=== PATIENT | male | born 1970 | race Caucasian/White ===

== ENCOUNTER 2025-06-24 22:05 | Emergency (ER) | payer BC, OTHER ==
[~2025-06-24] VITALS: Ht 180.3 cm; Wt 125.6 kg
[2025-06-24 23:56] LABS: APPEARANCE,URINE TURBID (CLEAR); BLOOD, URINE 3+ Ery/uL (NEGATIVE); LEUKOCYTE ESTERASE ,URINE TRACE (NEGATIVE); NITRITE, URINE POSITIVE (NEGATIVE); UGLUCOSE NEGATIVE (NEGATIVE)
[2025-06-25 00:22] LABS: ADD URINE CULTURE YES
[2025-06-25 00:23] LABS: SQUAMOUS EPITHELIAL CELL,UR 0-2 /HPF (None Seen)
[2025-06-25 00:30] LABS: PLATELET COUNT (AUTO) 270 K/uL (150-450); RED BLOOD CELL COUNT(AUTO) 4.77 MIL/uL (4.5-6.0); RED CELL DISTRIBUTION WIDTH 13.7 % (11.5-15.0); WHITE BLOOD COUNT (AUTO) 9.6 K/uL (4.3-11.0)
[2025-06-25 00:34] LABS: CALCIUM, SERUM 9.2 mg/dL (8.5-10.1); CREATININE 1.2 mg/dL (0.6-1.3); SODIUM SERUM 143.0 mmol/L (136-145); UREA NITROGEN, BLOOD 16.0 mg/dL (7-18)
[2025-06-25] MEDS ORDERED: SULFAMETH/TRIMETH 800/160 MG 1 UDTAB TABLET ONE (00:55)
[2025-06-25] MEDS: SULFAMETH/TRIMETH 800/160 MG 1 UDTAB TABLET PO ONE (00:58)
[2025-06-25] MEDS: CEFUROXIME AXETIL 250 MG TABLET PO STA (01:15)
[2025-06-25] MEDS ORDERED: SULF1TAB48 PO (01:19)
[2025-06-25] MEDS ORDERED: TAMS-12 PO (01:21)
[2025-06-25 01:42] VITALS: BP 145/89; TEMP 98; O2SAT 99
== END 2025-06-25 01:43 | disposition home or self-care (01) ==
LOC: ER 22:09
DX: N20.0 Calculus of kidney (principal); N39.0 Urinary tract infection, site not specified; I11.9 Hypertensive heart disease without heart failure; E78.5 Hyperlipidemia, unspecified; Z88.0 Allergy status to penicillin; Z95.5 Presence of coronary angioplasty implant and graft
CPT/HCPCS: 36415; 80048-TC; 81001; 85025-TC; 87086-TC